=== PATIENT | female | born 1985 | race Caucasian/White ===

== ENCOUNTER → 2022-11-21 08:54 | Outpatient (BNVA) | payer OTHER, SELFPAY | PROVIDERS: PCP Nurse Practitioner Family; Visit Provider Physician Assistant Surgical | DX: Z13.89 Encounter for screening for other disorder (principal) ==

== ENCOUNTER → 2022-12-12 12:57 | Outpatient (BNVA) | payer OTHER, SELFPAY | PROVIDERS: PCP Nurse Practitioner Family; Visit Provider Physician Assistant Surgical | DX: E66.9 Obesity, unspecified (principal); Z68.34 Body mass index [BMI] 34.0-34.9, adult | CPT/HCPCS: 99202 ==

== ENCOUNTER → 2023-01-10 08:34 | Outpatient (BNVA) | payer OTHER, SELFPAY | PROVIDERS: PCP Nurse Practitioner Family; Visit Provider Dietitian, Registered | DX: E66.9 Obesity, unspecified (principal); Z68.33 Body mass index [BMI] 33.0-33.9, adult; Z71.3 Dietary counseling and surveillance | CPT/HCPCS: 97802 ==

== ENCOUNTER → 2023-01-24 08:36 | Outpatient (BNVA) | payer OTHER, SELFPAY | PROVIDERS: PCP Nurse Practitioner Family; Referring Provider Nurse Practitioner Family; Visit Provider Physician Assistant Surgical ==

== ENCOUNTER 2023-03-07 09:25 | Outpatient (AMB) | payer OTHER, SELFPAY ==
--- NOTE | 2023-03-07 09:28 | A.OFFVIS_ITS ---
Intake VS Expanded 03/07/23 09:29 Height 5 ft 3 in Weight 183 lb 9.6 oz BMI 32.5 BP 119/74 Blood Pressure Location Lt brachial Blood Pressure Position Sitting Pulse 63 Pulse Source Pulse Oximeter Temp 98.8 F Temperature Source Temporal Artery Scan Pulse Oximetry 99 Oxygen Delivery Method Room Air Body Fat 65.4 Body Fat Percentage 35.7 Free Fat Mass 118.0 Muscle Mass 112.0 Visceral Mass 7.0 Water Mass 84.4 BMR 1,621 Intake Visit Reasons: [facility] follow up Senior Service Technician Required: No Allergies No Known Allergies Allergy (Verified 03/07/23 09:31) Medication List - Last Reconciled 03/07/23 [address] Yee phentermine 15 mg PO DAILY topiramate 0 mg PO HPI HPI Comments History of Present Illness Details 38 yo female returns for [facility] f/u Initial weight on 12/12/22 was 193.4 with a BMI of 34.2 Weight today 183.6 with a BMI of 32.5 weight loss 9.8 pounds or 5 % [facility] Tolerating Phentermine without side effects and she does notice increased hunger if she forgets a dose. Satisfied with current meal plan and recc from RD. States she would like to get in the 170s. meal plan: Premier protein shake - 30 g Same shake - 30g Fruit Dinner-3-5 oz of protein, vegetables (unlimited), healthy carb Drinking 70-80 oz water Exercise plan: [place] workouts 6 days/week and bike 2 days per week. PFSH Surgical History Hx of section Family History Mother History of hypertension H/O Karen thyroiditis Father History of hypertension Bipolar 1 disorder Obesity High cholesterol Daughter Myopia Daughter No problems noted. Social History Alcohol intake: current Alcohol intake frequency: a few times a month Patient Tobacco Use Status: Never used Tobacco Review of Systems Const All systems reviewed & are unremarkable except as noted in HPI and below Physical Exam Vital Signs: Last Vital Signs Temp 98.8 F 03/07/23 09:29 Pulse 63 03/07/23 09:29 BP 119/74 03/07/23 09:29 Pulse Ox 99 03/07/23 09:29 Oxygen Delivery Method Room Air 03/07/23 09:29 BMI result Body Mass Index 32.5 Assessment & Plan Assessment & Plan (1) Obesity (BMI 30-39.9): Code(s): E66.9 - Obesity, unspecified Plan: Has shown continued improvement. States feels better, notices improved muscle tone, clothes fitting better, energy improved, exercise tolerance improved Will have one more appt with RD in 3-4 weeks to trend tanita and conclude any questions with meal planning. States new plan by RD is working better for her than initial plan. Coding Level of Care Code Est Pt Level 3 (88153) Diagnoses Obesity (BMI 30-39.9) E66.9
[2023-03-07 09:29] VITALS: BP 119/74; PULSE 63; TEMP 37.1; O2SAT 99; BMI 32.5
== END 2023-03-07 10:07 | disposition home or self-care (01) ==
PROVIDERS: PCP Nurse Practitioner Family; Visit Provider Physician Assistant Surgical
DX: E66.9 Obesity, unspecified (principal); Z68.32 Body mass index [BMI] 32.0-32.9, adult
CPT/HCPCS: 99213

== ENCOUNTER → 2023-03-07 09:25 | Outpatient (BNVA) | payer OTHER, SELFPAY | PROVIDERS: PCP Nurse Practitioner Family; Visit Provider Physician Assistant Surgical ==